=== PATIENT | female | born 1955 | race Caucasian/White ===

== ENCOUNTER 2020-04-29 12:54 | Emergency (ER) | payer OTHER, SELFPAY ==
--- NOTE | ~2020-04-29 | XR_ITS ---
EXAMINATION: XR tibia fibula RT 2V INDICATION: Right lower limb pain TECHNIQUE: Two views of the right tibia and fibula are obtained. COMPARISON: None available FINDINGS: There is swelling and laceration in the medial soft tissues of the right leg. No radiopaque foreign body is present. The underlying osseous structures are unremarkable. 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 No fracture is identified. IMPRESSION: 1. Laceration and soft tissue swelling of the leg without evidence of acute osseous abnormality or ra diopaque foreign body. Reviewed, dictated and finalized at location A. [employer] [employer] IMPRESSION: 1. Laceration and soft tissue swelling of the leg without evidence of acute oss eous abnormality or radiopaque foreign body.
[2020-04-29 13:24] VITALS: BP 154/74; PULSE 81; RESP 18; TEMP 37.2; O2SAT 98
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
[2020-04-29] MEDS: TETANUS,DIPHTHERIA,AC PERTUSSIS ADULT (0.5 ML) BOOSTRIX IM (14:05)
== END 2020-04-29 15:31 | disposition home or self-care (01) ==
PROVIDERS: Emergency Provider Emergency Medicine
DX: S81.811A Laceration without foreign body, right lower leg, initial encounter (principal); V18.4XXA Pedal cycle driver injured in noncollision transport accident in traffic accident, initial encounter; Y93.55 Activity, bike riding; Z23 Encounter for immunization
CPT/HCPCS: 12002; 73590; 90471; 90715; 99283